=== PATIENT | female | born 1965 | race American Indian/Alaskan Native ===

== ENCOUNTER 2018-05-28 14:49 | Observation (INO) | payer MEDICAID, OTHER ==
[2018-05-28 14:49] VITALS: BMI 38.0
--- NOTE | 2018-05-28 15:16 | C.PDOC ---
History Of Present Illness 53 y/o female with PMHx of HTN, DM, hypercholesterolemia, anxiety, and fibromyalgia, presents with complaints of dizziness described as lightheadedness. Of note, patient reports episode of sweats, palpitations, and left arm tingling last night. States she also noticed blood pressure was elevated while checking at home this week. She saw her PMD 2 days ago and had medications adjusted (clonidine increased). Patient reports that while in therapy today, she suddenly felt dizzy/lightheaded and near syncopal. She was given water and sat down, pressure was found to be 220/118, and patient was sent to the ED. Otherwise she denies any chest pain, SOB, MUNSON, leg swelling/pain, nausea, vomiting, diarrhea, changes in speech, focal weakness, or numbness. Patient admits she has had prior work-up with cardiac catheterization in 2016, but has not had recent cardiology follow-up due to insurance problem. Denies recent echo or stress test. Time Seen by Provider: 05/28/18 15:40 Chief Complaint (Nursing): High Blood Pressure History Per: Patient History/Exam Limitations: no limitations Onset/Duration Of Symptoms: Hrs Current Symptoms Are (Timing): Still Present Associated Symptoms: Dizziness Quality Of Symptoms: Rapid Heart Rate, Other (Sweats, left arm tingling) Exacerbating Factor(s): Pos: Recent Change In Medication Past Medical History Reviewed: Historical Data, Nursing Documentation, Vital Signs Vital Signs: Last Vital Signs Temp 98.5 F 05/28/18 14:53 Pulse 82 05/28/18 14:53 Resp 18 05/28/18 14:53 BP 183/125 H 05/28/18 14:53 Pulse Ox 96 05/28/18 14:53 - Medical History PMH: Anemia (Blood Transfusions.), Anxiety, Arthritis (Left side: left neck, left arm, left shoulder, left leg and left foot.), Asthma, Depression, Diabetes, Diverticulitis, HTN (Hx of consistent borderline elevated BP's.) Denies: Chronic Kidney Disease Surgical History: Appendectomy - [facility] IMMOBILIZ/WOUND ATTN NEC (01/23/04) VENOUS PUNCTURE NEC (05/14/14) Family History: States: No Known Family Hx - Social History Hx Tobacco Use: No Hx Alcohol Use: No Hx Substance Use: No - Immunization History Hx Tetanus Toxoid Vaccination: No Review Of Systems Constitutional: Positive for: Sweats. Negative for: Fever Eyes: Negative for: Vision Change Cardiovascular: Positive for: Palpitations, Light Headedness. Negative for: Chest Pain Respiratory: Negative for: Cough, Shortness of Breath, SOB with Excertion Gastrointestinal: Negative for: Nausea, Vomiting, Diarrhea Neurological: Positive for: Dizziness, Other (Left arm tingling). Negative for: Weakness, Numbness, Change in Speech, Confusion Physical Exam - Physical Exam Appears: Non-toxic, No Acute Distress Skin: Warm, Dry Head: Normacephalic Eye(s): bilateral: Normal Inspection, PERRL, EOMI Oral Mucosa: Moist Neck: Trachea Midline, Supple, Other (No meningeal signs- negative kernig's and brudzinskis) Chest: Symmetrical Cardiovascular: Rhythm Regular, Other (No rub) Respiratory: No Rales, No Rhonchi, No Wheezing Gastrointestinal/Abdominal: Soft, No Tenderness, No Distention Extremity: Bilateral: Normal Color And Temperature Pulses: Left Dorsalis Pedis: Normal, Right Dorsalis Pedis: Normal Neurological/Psych: Oriented x3 ED Course And Treatment - Laboratory Results Result Diagrams: 05/28/18 16:07 05/28/18 16:07 O2 Sat by Pulse Oximetry: 96 (RA) Pulse Ox Interpretation: Normal Medical Decision Making Medical Decision Makin yr old F w/ hx of HTN, HLD, DM2 p/w L arm tingling, sweating intermittently. She notes these symptoms started last night, first time occurence without any chest pain or shortness of breath. She notes her pressure was elevated today while she was in therapy and psych provider sent her in for HTN. Low Prestest well, PERC out. last stress test and echo was 2 years prior normal- given HTN hx and L sided arm pain however likely moderate risk HEART score. will seek imaging and labs. Pt also notes THORNTON, not worst of life and not sudden in onset. No FND on my exam. No meningeal signs. Plan: Labs EKG CXR CT Head Apresoline 10 mg IVP 1644 Xray unremarkable pressures improved w/ out rx 177/100 Heart score Age: 1 RF: 2 EK troponin: pending Story: 1 EKG 77, NSR, no stemi 1752 Ct unremarkable appreciate consult w/ Dr. Denise ansari, to admit to his service for acs w/u Disposition - Disposition Disposition Time: 17:53 Condition: GOOD Forms: [facility] (Pashto) - Clinical Impression Clinical Impression: Chest pain - Scribe Statement The provider has reviewed the documentation as recorded by the Oscaribiman Quarles Provider Attestation: All medical record entries made by the Oscaribe were at my direction and personally dictated by me. I have reviewed the chart and agree that the record accurately reflects my personal performance of the history, physical exam, medical decision making, and the department course for this patient. I have also personally directed, reviewed, and agree with the discharge instructions and disposition.
[2018-05-28 16:11] LABS: BASO % 0.6 % (0.0-2.0); EOS # 0.2 K/uL (0.0-0.7); EOS % 2.2 % (0.0-4.0); HEMOGLOBIN 13.5 g/dL (11.0-16.0); LYMPH # 2.1 K/uL (1.0-4.3); LYMPH % 27.5 % (20.0-40.0); MEAN CELL VOLUME 80.3 fL (81.0-99.0); MEAN CORPUSCULAR HEMOGLOBIN 25.6 pg (27.0-31.0); MEAN CORPUSCULAR HGB CONC 31.9 g/dL (33.0-37.0); MEAN PLATELET VOLUME 8.4 fL (7.2-11.7); MONO # 0.5 K/uL (0.0-0.8); NEUT # 4.8 K/uL (1.8-7.0); NEUT % 62.7 % (50.0-75.0); NRBC % 0.1 % (0.0-2.0); RBC 5.28 Mil/uL (3.80-5.20); RED CELL DISTRIBUTION WIDTH 14.3 % (11.5-14.5); WHITE BLOOD COUNT 7.6 K/uL (4.8-10.8)
--- NOTE | 2018-05-28 16:46 | RAD ---
HISTORY: left arm tingling last night COMPARISON: No prior. TECHNIQUE: Chest PA and lateral FINDINGS: LUNGS: Streaky artifact at the right lung apex appears external to the patient. No focal consolidation. Please note that chest x-ray has limited sensitivity for the detection of pulmonary masses. PLEURA: No significant pleural effusion identified. No definite pneumothorax . CARDIOVASCULAR: Heart size appears within normal limits. Ectatic aorta. Atherosclerotic calcification present. OSSEOUS STRUCTURES: Degenerative changes of the spine. VISUALIZED UPPER ABDOMEN: Unremarkable. OTHER FINDINGS: None. IMPRESSION: Evidence of streaky artifact at the right lung apex appears external to the patient. No focal consolidation identified.
--- NOTE | 2018-05-28 16:55 | CT ---
Date of service: 05/28/2018 PROCEDURE: CT HEAD WITHOUT CONTRAST. HISTORY: thomas, htn COMPARISON: None available. TECHNIQUE: Axial computed tomography images were obtained through the head/brain without intravenous contrast. Radiation dose: Total exam DLP = 1000.8 mGy-cm. This CT exam was performed using one or more of the following dose reduction techniques: Automated exposure control, adjustment of the mA and/or kV according to patient size, and/or use of iterative reconstruction technique. FINDINGS: HEMORRHAGE: No intracranial hemorrhage. BRAIN: No mass effect or edema. The franklin-white matter differentiation appears intact.Please note that MRI with diffusion imaging is more sensitive in the detection of acute ischemic event. VENTRICLES: No hydrocephalus. CALVARIUM: Unremarkable. PARANASAL SINUSES: Unremarkable as visualized. No significant inflammatory changes. MASTOID AIR CELLS: Unremarkable as visualized. No inflammatory changes. OTHER FINDINGS: None. IMPRESSION: No acute intracranial pathology identified.
[2018-05-28 17:24] LABS: ALB/GLOB RATIO 1.2 (1.0-2.1); ALBUMIN 3.8 g/dL (3.5-5.0); ALT/SGPT 15 U/L (9-52); AST/SGOT 13 U/L (14-36); BLOOD UREA NITROGEN 21 mg/dL (7-17); CALCIUM 9.5 mg/dl (8.6-10.4); GFR NON-AFRICAN AMERICAN 58
[2018-05-28 17:31] LABS: B-TYPE NATRIURETIC PEPTIDE 129 pg/mL (0-900)
[2018-05-28] MEDS ORDERED: Aspirin 325 mg EC Tablets PO STA (17:54)
[2018-05-28] MEDS: (Novolog) Insulin Aspart, Recombinant 100 u/ml 10 ml vial SC SCH (21:56)
[2018-05-28 23:16] LABS: CK-MB 0.49 ng/mL (0.0-3.38)
[2018-05-29] MEDS ORDERED: Nitroglycerin 2% Ointment Foilpak UD TOP STA (00:04)
[2018-05-29 05:55] LABS: CK-MB 0.49 ng/mL (0.0-3.38)
[2018-05-29] MEDS: (Novolog) Insulin Aspart, Recombinant 100 u/ml 10 ml vial SC SCH ×4 (08:34→21:33)
[2018-05-29] MEDS: Enoxaparin 40 mg Syringe SC SCH (09:31)
[2018-05-29] MEDS: Metoprolol Succinate 100 mg XL Tab PO SCH (09:31)
--- NOTE | 2018-05-29 21:22 | CARD ---
APPROVED REPORT Date of service: 05/28/2018 EKG Measurement Heart [id number] <Conclusion> Normal sinus rhythm Possible Left atrial enlargement Borderline ECG
--- NOTE | 2018-05-29 23:49 | CP.PCM.CON ---
History of Present Illness - History of Present Illness History of Present Illness: Consultation for chest pain HPI: 53 year old female with hx of HTN, DM, dyslipidemia, fibromyalgia presenting with c/o dizziness and light-headedness. Also had left arm numbness. Had cardiac catheterization by in 2016 at [facility] and was told that her coronaries are non-obstructive. States she also noticed blood pressure was elevated while checking at home this week. She saw her PMD 2 days ago and had medications adjusted (clonidine increased). Patient reports that while in therapy today, she suddenly felt dizzy/lightheaded and near syncopal. She was given water and sat down, pressure was found to be 220/118, and patient was sent to the ED. Otherwise she denies any chest pain, SOB, MUNSON, leg swelling/pain, nausea, vomiting, diarrhea, changes in speech, focal weakness, or numbness. Patient admits she has had prior work-up with cardiac catheterization in 2016, but has not had recent cardiology follow- up due to insurance problem. Denies recent echo or stress test. PMH: Anemia (Blood Transfusions.), Anxiety, Arthritis (Left side: left neck, left arm, left shoulder, left leg and left foot.), Asthma, Depression, Diabetes, Diverticulitis, HTN (Hx of consistent borderline elevated BP's.) Denies: Chronic Kidney Disease Surgical History: Appendectomy Review of Systems - Review of Systems Systems not reviewed;Unavailable: Acuity of Condition - Constitutional Constitutional: As Per HPI - EENT Eyes: As Per HPI Ears: As Per HPI Nose/Mouth/Throat: As Per HPI - Breasts Breasts: As Per HPI - Cardiovascular Cardiovascular: As Per HPI - Respiratory Respiratory: As Per HPI - Gastrointestinal Gastrointestinal: As Per HPI - Genitourinary Genitourinary: As Per HPI - Reproductive: Female Reproductive:Female: As Per HPI - Menstruation Menstruation: As Per HPI - Musculoskeletal Musculoskeletal: As Per HPI - Integumentary Integumentary: As Per HPI - Neurological Neurological: As Per HPI - Psychiatric Psychiatric: As Per HPI - Endocrine Endocrine: As Per HPI - Hematologic/Lymphatic Hematologic: As Per HPI Past Patient History - Infectious Disease Hx of Infectious Diseases: None - Tetanus Immunizations Tetanus Immunization: Up to Date - Past Social History Smoking Status: Former Smoker - CARDIAC Hx Hypertension: Yes (Hx of consistent borderline elevated BP's.) - PULMONARY Hx Asthma: Yes - NEUROLOGICAL Hx Neurological Disorder: Yes Hx Dizziness: Yes - HEENT Hx HEENT Problems: No - RENAL Hx Chronic Kidney Disease: No - ENDOCRINE/METABOLIC Hx Endocrine Disorders: No (Hx of Sickle Cell Trait.) Hx Diabetes Mellitus Type 2: Yes - HEMATOLOGICAL/ONCOLOGICAL Hx Anemia: Yes (Blood Transfusions.) - INTEGUMENTARY Hx Dermatological Problems: No - MUSCULOSKELETAL/RHEUMATOLOGICAL Hx Arthritis: Yes (Left side: left neck, left arm, left shoulder, left leg and left foot.) - GASTROINTESTINAL Hx Diverticulitis: Yes - GENITOURINARY/GYNECOLOGICAL Hx Genitourinary Disorders: Yes (Heavy Vaginal Bleeding/ Anemia/ Blood Tr ansfusion.) Other/Comment: Hx of Fibroid Uterus. - PSYCHIATRIC Hx Anxiety: Yes Hx Depression: Yes Hx Substance Use: No - SURGICAL HISTORY Hx Appendectomy: Yes - ANESTHESIA Hx Anesthesia: No Hx Anesthesia Reactions: No Hx Malignant Hyperthermia: No Meds Allergies/Adverse Reactions: Allergies Allergy/AdvReac Type Severity Reaction Status Date / Time lisinopril Allergy SWELLING Verified 04/07/17 02:36 hydromorphone [From Dilaudid] AdvReac DIZZINESS Verified 04/07/17 02:36 - Medications Medications: Current Medications Acetaminophen (Tylenol 325mg Tab) 650 mg PO Q6 PRN PRN Reason: Pain, moderate (4-7) Last Admin: 05/29/18 13:41 Dose: 650 mg Acetaminophen (Tylenol 325mg Tab) 650 mg PO Q6 PRN PRN Reason: Headache Alprazolam (Xanax) 1 mg PO Q12 PRN PRN Reason: Anxiety Amlodipine Besylate (Norvasc) 10 mg PO DAILY [facility] Last Admin: 05/29/18 09:30 Dose: 10 mg Clonidine HCl (Catapres) 0.2 mg PO TID [facility] Last Admin: 05/29/18 21:34 Dose: 0.2 mg Enoxaparin Sodium (Lovenox) 40 mg SC DAILY [facility] Last Admin: 05/29/18 09:31 Dose: 40 mg Gabapentin (Neurontin) 300 mg PO TID [facility] Last Admin: 05/29/18 17:54 Dose: 300 mg Hydralazine HCl (Apresoline) 25 mg PO Q8 [facility] Last Admin: 05/29/18 21:34 Dose: 25 mg Insulin Aspart (Novolog) 0 unit SC [facility]; Protocol Last Admin: 05/29/18 21:33 Dose: Not Given Metformin HCl (Glucophage) 850 mg PO BID [facility] Metoprolol Succinate (Toprol Xl) 100 mg PO DAILY [facility] Last Admin: 05/29/18 09:31 Dose: 100 mg Rosuvastatin Calcium (Crestor) 10 mg PO HS [facility] Last Admin: 05/29/18 21:34 Dose: 10 mg Sitagliptin Phosphate (Januvia) 50 mg PO DAILY [facility] Last Admin: 05/29/18 09:30 Dose: 50 mg Physical Exam - Constitutional Appears: Well - Head Exam Head Exam: ATRAUMATIC, NORMAL INSPECTION, NORMOCEPHALIC - Eye Exam Eye Exam: EOMI, Normal appearance, PERRL Pupil Exam: NORMAL ACCOMODATION, PERRL - ENT Exam ENT Exam: Mucous Membranes Moist, Normal Exam - Neck Exam Neck exam: Positive for: Normal Inspection - Respiratory Exam Respiratory Exam: Clear to Auscultation Bilateral, NORMAL BREATHING PATTERN - Cardiovascular Exam Cardiovascular Exam: REGULAR RHYTHM - GI/Abdominal Exam GI & Abdominal Exam: Normal Bowel Sounds, Soft. absent: Tenderness - Extremities Exam Extremities exam: Positive for: normal inspection - Back Exam Back exam: NORMAL INSPECTION - Neurological Exam Neurological exam: Alert, CN II-XII Intact, Normal Gait, Oriented x3, Reflexes Normal - Psychiatric Exam Psychiatric exam: Normal Affect, Normal Mood - Skin Skin Exam: Dry, Intact, Normal Color, Warm Results - Vital Signs Recent Vital Signs: Last Vital Signs Temp 98.3 F 05/29/18 15:57 Pulse 59 L 05/29/18 15:57 Resp 18 05/29/18 15:57 BP 120/76 05/29/18 15:57 Pulse Ox 98 05/29/18 15:57 - Labs Result Diagrams: 05/28/18 16:07 05/28/18 16:07 Labs: Laboratory Results - last 24 hr 05/28/18 05/29/18 05/29/18 21:02 04:02 06:35 POC Glucose (mg/dL) 275 H 318 H Total Creatine Kinase 43 CK-MB (Mass) 0.49 Troponin I < 0.0120 05/29/18 11:12 POC Glucose (mg/dL) 247 H Total Creatine Kinase CK-MB (Mass) Troponin I Assessment & Plan (1) Chest pain Assessment and Plan: atypical etiology MSK serial TnI x 3 -ve echo stable to dc home if echo normal Status: Acute (2) Essential hypertension Assessment and Plan: titrate BP meds cont home meds Status: Acute (3) Back pain Status: Acute (4) Hyperglycemia Status: Acute (5) Intercostal muscle strain Status: Acute
--- NOTE | 2018-05-30 06:36 | HP ---
CHIEF COMPLAINT: Palpitation times few weeks. HISTORY OF PRESENT ILLNESS: This is a 53-year-old -[place] female with history of hypertension, hyperlipidemia, type 2 diabetes, anxiety, fibromyalgia. She is being seen by psychiatrist. According to the patient for the last few weeks, she has been having palpitation. She denies any chest pain or chest tightness. She denies any pleurisy. She denies cough, sore throat, runny nose. Palpitation is insidious. It happens to her suddenly without any warning sign. There is no positional component to it. There is no relation with any mental stress, and once she starts having palpitations, she gets weak, dizzy. She just tried to relieve her symptoms, and last night according to her, she woke up with left arm numbness, and she is not sure if her left arm was under her body, and after that she started feeling palpitation, weakness, and dizziness. She had a recent adjustment of clonidine dosage that has been fluctuating. The patient states as she moves her arm, she gets sudden episode of lightheadedness and dizziness and near-syncopal episode. The patient's blood pressure was extremely high 220/118 in the emergency room and was evaluated in the field, and then in the ER and she is hospitalized. She denies any chest pain, shortness of breath, dyspnea on exertion, orthopnea, PND, or any edema. She denies any nausea, vomiting, or diarrhea. She denies any history of tingling, numbness, or paresthesia. She denies any focal weakness. She denies any involuntary movement. She denies any abdominal pain, nausea, or vomiting. She denies any cough, sore throat. She denies any sneezing, itchy eyes, or itchy nose. She denies any history of joint pain. PAST MEDICAL HISTORY: Chest pain, cardiac cath in 2016 was negative. Hypertension, type 2 diabetes, hyperlipidemia, and obesity. SOCIAL HISTORY: Nonsmoker, non-EtOH user. CURRENT MEDICATIONS: At home, she is taking Norvasc, NovoLog, Glucophage, albuterol sulfate, Diamox, Lopressor, Neurontin, clonidine, and alogliptin. PHYSICAL EXAMINATION: GENERAL: An elderly thin, middle-aged female, in no acute distress. VITAL SIGNS: Blood pressure 161/95, pulse 62, respiratory rate 20, temperature 98.3. SKIN: No rashes. No bruises. No purpura. No petechia. No ecchymosis. No scratch salgado. HEENT: Atraumatic and normocephalic. Negative pallor. Negative jaundice. Extraocular movements are intact. NECK: Supple. No JVD. No lymph node. No thyromegaly. No carotid bruit. CHEST WALL: Bilateral symmetrical expansion. No masses. LUNGS: Bilaterally clear. No rales. No rhonchi. CARDIOVASCULAR SYSTEM: PMI not localized. S1 and S2, regular. No heave. No thrill. ABDOMEN: Soft, nontender. Bowel sounds are positive. RECTAL No masses. No bleed. EXTREMITIES: No clubbing, cyanosis, or edema. QUALITY CONTROL SCIENTIST: Awake, alert, and oriented x3. Cranial nerves II through XII are normal. Power 5/5 x4. Plantars are downgoing. Gait is unsteady due to dizziness. ASSESSMENT: 1. Palpitation, weakness, dizziness. Rule out atrial fibrillation, atrial flutter. Rule out supraventricular tachycardia. Rule out ventricular tachycardia. 2. Hypertension. 3. Hyperlipidemia. 4. Type 2 diabetes. PLAN: Neuro checks. troponin. Monitor the patient. Jabier Walker MD
[2018-05-30] MEDS: (Novolog) Insulin Aspart, Recombinant 100 u/ml 10 ml vial SC SCH ×2 (08:03→11:56)
[2018-05-30] MEDS: Enoxaparin 40 mg Syringe SC SCH (09:21)
[2018-05-30] MEDS: Metoprolol Succinate 100 mg XL Tab PO SCH (09:21)
--- NOTE | 2018-05-30 15:30 | CP.PCM.PN ---
Subjective - Date & Time of Evaluation Date of Evaluation: 05/30/18 Time of Evaluation: 15:29 Objective - Vital Signs/Intake and Output Vital Signs (last 24 hours): Temp Pulse Resp BP Pulse Ox 98.0 F 66 18 130/73 97 05/30/18 12:52 05/30/18 13:54 05/30/18 12:52 05/30/18 13:54 05/30/18 12:52 Intake and Output: 05/30/18 05/30/18 06:59 18:59 Intake Total 400 Balance 400 - Medications Medications: Current Medications Acetaminophen (Tylenol 325mg Tab) 650 mg PO Q6 PRN PRN Reason: Pain, moderate (4-7) Last Admin: 05/30/18 08:04 Dose: 650 mg Acetaminophen (Tylenol 325mg Tab) 650 mg PO Q6 PRN PRN Reason: Headache Alprazolam (Xanax) 1 mg PO Q12 PRN PRN Reason: Anxiety Amlodipine Besylate (Norvasc) 10 mg PO DAILY [facility] Last Admin: 05/30/18 09:20 Dose: 10 mg Clonidine HCl (Catapres) 0.2 mg PO TID [facility] Last Admin: 05/30/18 13:54 Dose: 0.2 mg Enoxaparin Sodium (Lovenox) 40 mg SC DAILY [facility] Last Admin: 05/30/18 09:21 Dose: 40 mg Famotidine (Pepcid) 20 mg PO BID [facility] Last Admin: 05/30/18 13:54 Dose: 20 mg Gabapentin (Neurontin) 300 mg PO TID [facility] Last Admin: 05/30/18 13:54 Dose: 300 mg Hydralazine HCl (Apresoline) 25 mg PO Q8 [facility] Last Admin: 05/30/18 13:54 Dose: 25 mg Insulin Aspart (Novolog) [address] [facility]; Protocol Last Admin: 05/30/18 11:56 Dose: 3 unit Metformin HCl (Glucophage) 850 mg PO BID [facility] Last Admin: 05/30/18 09:21 Dose: 850 mg Metoprolol Succinate (Toprol Xl) 100 mg PO DAILY [facility] Last Admin: 05/30/18 09:21 Dose: 100 mg Rosuvastatin Calcium (Crestor) 10 mg PO HS [facility] Last Admin: 05/29/18 21:34 Dose: 10 mg Sitagliptin Phosphate (Januvia) 50 mg PO DAILY [facility] Last Admin: 05/30/18 09:20 Dose: 50 mg - Labs Labs: 05/28/18 16:07 05/28/18 16:07 Assessment and Plan - Assessment and Plan (Free Text) Assessment: FOLLOW UP WITH DR SAMPSON IN HIS OFFICE ---CALL FOR APPOINTMENT FOLLOW UP WITH DR RUIZ IN HIS OFFICE ----CALL FOR APPOINTMENT CONTINUE HOME MEDICATION NEW PRESCRIPTION GIVEN TOPROL XL 100 MG PO DAILY HYDRALAZINE 25 MG PO EVERY 8 HOUR STOP TAKING LOPRESSOR 50 MG AT HOME ACTIVITY TOLERATED CALL DR SAMPSON OR GO TO THE EMERGENCY ROOM IF SYMPTOM RETURN OR WORSENING
[2018-05-30 15:58] VITALS: BP 153/83; PULSE 63; RESP 20; TEMP 97.9; O2SAT 95
[2018-05-30] MEDS ORDERED: Influenza Vaccine 60 MCG/0.5 ML SYR (3 yr & up) IM ONE (16:21)
[2018-05-30] MEDS ORDERED: Pneumococcal 23-Valent Vaccine IM ONE (16:21)
--- NOTE | 2018-05-30 18:57 | CARD ---
APPROVED REPORT Date of service: 05/29/2018 EXAM: Two-dimensional and M-mode echocardiogram with Doppler and color Doppler. Other Information Quality : GoodRhythm : INDICATION Dizziness and Vertigo Chest Pain Palpitations RISK FACTORS Hypertension Hyperlipidemia Diabetes 2D DIMENSIONS IVSd1.3 (0.7-1.1cm)LVDd4.6 (3.9-5.9cm) PWd1.0 (0.7-1.1cm)LA Dpldgb35 (18-58mL) LVDs3.1 (2.5-4.0cm)FS (%) 32.8 % LVEF (%)61.3 (>50%)LVEF (Teixeira's)57.60 % M-Mode DIMENSIONS Left Atrium (MM)3.98 (2.5-4.0cm)IVSd1.14 (0.7-1.1cm) Aortic Root3.59 (2.2-3.7cm)LVDd5.36 (4.0-5.6cm) Aortic Cusp Exc.1.97 (1.5-2.0cm)PWd1.04 (0.7-1.1cm) FS (%) 37 %LVDs3.37 (2.0-3.8cm) LVEF (%)67 (>50%) Mitral Valve MV E Uztmxsbn33.4cm/sMV A Gzxzptdw72.0cm/sE/A ratio0.7 TDI Lateral E' Peak V5.38cm/sMedial E' Peak V3.96cm/sE/Lateral E'11.6 E/Medial E'15.8 Tricuspid Valve TR Peak [id number]/sTR Peak Gr.[id number] LEFT VENTRICLE The left ventricle is normal size. There is normal left ventricular wall thickness. Left ventricle systolic function is normal. The Ejection Fraction is 60-65%. There is normal LV segmental wall motion. Tissue Doppler imaging reveals abnormal left ventricular diastolic dysfunction. RIGHT VENTRICLE The right ventricle is normal size. There is normal right ventricular wall thickness. The right ventricular systolic function is normal. ATRIA The left atrium size is normal. The right atrium size is normal. The interatrial septum is intact with no evidence for an atrial septal defect. AORTIC VALVE The aortic valve is normal in structure. No aortic regurgitation is present. There is no aortic valvular stenosis. MITRAL VALVE The posterior mitral valve leaflet appears thickened, but open well. There is no evidence of mitral valve prolapse. There is no mitral valve stenosis. Mitral regurgitation is mild. TRICUSPID VALVE The tricuspid valve is normal in structure. There is trace tricuspid regurgitation. Right ventricular systolic pressure is estimated at less than 30 mmHg. There is no pulmonary hypertension. PULMONIC VALVE The pulmonic valve is not well visualized. There is no pulmonic valvular regurgitation. GREAT VESSELS The aortic root is normal in size. PERICARDIAL EFFUSION There is no significant pericardial effusion. <Conclusion> Left ventricle systolic function is normal. The Ejection Fraction is 60-65%. Diastolic dysfunction. No aortic regurgitation is present. Mitral regurgitation is mild. There is trace tricuspid regurgitation. There is no pulmonary hypertension. There is no pulmonic valvular regurgitation.
--- NOTE | 2018-05-31 21:43 | CP.PCM.DIS ---
Provider - Provider Date of Admission: 05/28/18 17:54 Attending physician: Jabier Walker MD Consults: dictated Hospital Course - Lab Results Lab Results: Most Recent Lab Values WBC 7.6 K/uL (4.8-10.8) 05/28/18 16:07 RBC 5.28 Mil/uL (3.80-5.20) H 05/28/18 16:07 Hgb 13.5 g/dL (11.0-16.0) 05/28/18 16:07 Hct 42.4 % (34.0-47.0) 05/28/18 16:07 MCV 80.3 fL (81.0-99.0) L 05/28/18 16:07 MCH 25.6 pg (27.0-31.0) L 05/28/18 16:07 MCHC 31.9 g/dL (33.0-37.0) L 05/28/18 16:07 RDW 14.3 % (11.5-14.5) 05/28/18 16:07 Plt Count 253 K/uL (130-400) 05/28/18 16:07 MPV 8.4 fL (7.2-11.7) 05/28/18 16:07 Neut % (Auto) 62.7 % (50.0-75.0) 05/28/18 16:07 Lymph % (Auto) 27.5 % (20.0-40.0) 05/28/18 16:07 [place] % (Auto) 7.0 % (0.0-10.0) 05/28/18 16:07 Eos % (Auto) 2.2 % (0.0-4.0) 05/28/18 16:07 Baso % (Auto) 0.6 % (0.0-2.0) 05/28/18 16:07 Neut # (Auto) 4.8 K/uL (1.8-7.0) 05/28/18 16:07 Lymph # (Auto) 2.1 K/uL (1.0-4.3) 05/28/18 16:07 [place] # (Auto) 0.5 K/uL (0.0-0.8) 05/28/18 16:07 Eos # (Auto) 0.2 K/uL (0.0-0.7) 05/28/18 16:07 Baso # (Auto) 0.0 K/uL (0.0-0.2) 05/28/18 16:07 Sodium 138 mmol/L (132-148) 05/28/18 16:07 Potassium 3.6 mmol/L (3.6-5.2) 05/28/18 16:07 Chloride 101 mmol/L (98-107) 05/28/18 16:07 Carbon Dioxide 25 mmol/L (22-30) 05/28/18 16:07 Anion Gap 15 (10-20) 05/28/18 16:07 BUN 21 mg/dL (7-17) H 05/28/18 16:07 Creatinine 1.0 mg/dL (0.7-1.2) 05/28/18 16:07 Est GFR ( Amer) > 60 05/28/18 16:07 Est GFR (Non-Af Amer) 58 05/28/18 16:07 POC Glucose (mg/dL) 178 mg/dL (65-110) H 05/30/18 16:14 Random Glucose 210 mg/dL (65-105) H 05/28/18 16:07 Calcium 9.5 mg/dl (8.6-10.4) 05/28/18 16:07 Magnesium 2.0 mg/dL (1.6-2.3) 05/28/18 16:07 Total Bilirubin 0.6 mg/dL (0.2-1.3) 05/28/18 16:07 AST 13 U/L (14-36) L 05/28/18 16:07 ALT 15 U/L (9-52) 05/28/18 16:07 Alkaline Phosphatase 101 U/L (38-126) 05/28/18 16:07 Total Creatine Kinase 43 U/L (30-135) 05/29/18 04:02 CK-MB (Mass) 0.49 ng/mL (0.0-3.38) 05/29/18 04:02 Troponin I < 0.0120 ng/mL (0.00-0.120) 05/29/18 04:02 NT-Pro-B Natriuret Pep 129 pg/mL (0-900) 05/28/18 16:07 Total Protein 7.0 g/dL (6.3-8.3) 05/28/18 16:07 Albumin 3.8 g/dL (3.5-5.0) 05/28/18 16:07 Globulin 3.1 gm/dL (2.2-3.9) 05/28/18 16:07 Albumin/Globulin Ratio 1.2 (1.0-2.1) 05/28/18 16:07 TSH 3rd Generation 0.25 mIU/L (0.46-4.68) L 05/28/18 16:07 Discharge Exam - Head Exam Head Exam: ATRAUMATIC, NORMAL INSPECTION, NORMOCEPHALIC Discharge Plan - Discharge Medications Prescriptions: hydrALAZINE [Apresoline] 25 mg PO Q8 30 Days tab Metoprolol Succinate XL [Toprol XL] 100 mg PO DAILY 30 Days tab - Follow Up Plan Condition: GOOD Disposition: HOME/ ROUTINE Instructions: Chest Pain (DC), Hydralazine, Metoprolol Additional Instructions: FOLLOW UP WITH DR WALKER IN HIS OFFICE ---CALL FOR APPOINTMENT FOLLOW UP WITH DR VILLARREAL IN HIS OFFICE ----CALL FOR APPOINTMENT CONTINUE HOME MEDICATION NEW PRESCRIPTION GIVEN TOPROL XL 100 MG PO DAILY HYDRALAZINE 25 MG PO EVERY 8 HOUR STOP TAKING LOPRESSOR 50 MG AT HOME ACTIVITY TOLERATED CALL DR WALKER OR GO TO THE EMERGENCY ROOM IF SYMPTOM RETURN OR WORSENING Referrals: Kentrell Villarreal MD [Staff Provider] - Jabier Walker MD [Staff Provider] -
--- NOTE | 2018-06-01 05:21 | DS ---
ADMISSION DIAGNOSIS: Palpitation. DISCHARGE DIAGNOSES: 1. Palpitation due to anxiety disorder. 2. Poorly controlled hypertension. 3. Poorly controlled diabetes. 4. Hyperlipemia. HOSPITAL COURSE: The patient is a 53-year-old female with history of type 2 diabetes, hypertension, hyperlipemia who is compliant with diet, medications, and followup. She came in because of on and off episodes of palpitation, weakness, and dizziness. She was seen by [facility]. The patient's physical exam was abnormal for as she was found to have high blood pressure, which was brought under control with medications. The patient has trace tricuspid regurgitation. Normal LV ejection fraction with no other abnormalities on echocardiogram. Cardiac enzymes x3 normal. The patient is stable upon discharge. The patient will be followed up by her PMD. On admission, WBC 7.6, hemoglobin 13.5, hematocrit 42.4, and platelets . The patient's sodium 138, potassium 3.6, chloride 101, bicarb 25, BUN 21, and creatinine 1. CONDITION UPON DISCHARGE: Stable. Jabier Walker MD
== END 2018-05-30 17:00 | disposition home or self-care (01) ==
LOC: C.ER 14:49 → C.6T 17:54
PROVIDERS: ADMIT Internal Medicine; ATTEND Internal Medicine
DX: R00.2 Palpitations (principal); I10 Essential (primary) hypertension; E78.5 Hyperlipidemia, unspecified; E11.65 Type 2 diabetes mellitus with hyperglycemia; M54.9 Dorsalgia, unspecified; E78.00 Pure hypercholesterolemia, unspecified; F41.9 Anxiety disorder, unspecified; J45.909 Unspecified asthma, uncomplicated; M79.7 Fibromyalgia; Z87.891 Personal history of nicotine dependence; F32.9 Major depressive disorder, single episode, unspecified; R07.9 Chest pain, unspecified; D57.3 Sickle-cell trait
CPT/HCPCS: 36415; 70450; 71046; 80053; 82948; 83735; 83880; 84443; 84484; 85025; 93005; 93306; 99285; G0378; J1650